=== PATIENT | female | born 1985 | race Caucasian/White ===

== ENCOUNTER 2017-08-14 05:47 | Emergency (ER) | payer OTHER ==
[~2017-08-14] VITALS: Ht 170.2 cm; Wt 56.8 kg
[~2017-08-14 05:47] MED LIST: PERCOCET 325 MG1 TA2 PO
[2017-08-14 05:50] VITALS: BP 132/68; TEMP 98.2
[2017-08-14] MEDS ORDERED: FEMYNOR 28 TAB1 EACH PO (05:54)
[2017-08-14 07:26] VITALS: PULSE 80
== END 2017-08-14 07:27 | disposition home or self-care (01) ==
LOC: COL.ER 05:47
DX: S05.01XA Injury of conjunctiva and corneal abrasion without foreign body, right eye, initial encounter (principal); X58.XXXA Exposure to other specified factors, initial encounter

== ENCOUNTER → 2023-12-07 | Outpatient (CLI) | payer BC ==
[~2023-12-07] MED LIST changes: +FEMYNOR 28 TAB1 EACH PO
== END ==
LOC: MC.RAD 08:31
DX: Z12.31 Encounter for screening mammogram for malignant neoplasm of breast (principal)